=== PATIENT | female | born 1955 | race African-American/Black ===

== ENCOUNTER 2016-11-01 14:35 | Emergency (ER) | payer OTHER ==
[~2016-11-01] VITALS: Ht 160 cm; Wt 97.0 kg
[2016-11-01] MEDS ORDERED: KETOROLAC 60MG/2ML VIAL IM ONE (19:00)
[2016-11-01 19:07] VITALS: BP 123/72
[2016-11-01 19:19] LABS: BASOPHILS % 0.8 % (0.0-2.0); HEMATOCRIT. 39.8 % (36.0-48.0); HEMOGLOBIN. 13.2 g/dL (12.0-16.0); LYMPHOCYTES % 28.3 % (20.0-50.0); MEAN CORPUSCULAR HEMOGLOBIN 26.8 pg (28.0-32.0); MEAN CORPUSCULAR VOLUME 80.7 fL (81.0-99.0); MONOCYTES % 4.8 % (2.0-8.0); NEUTROPHILS % 65.1 % (40.0-76.0); PLATELET 231 x1000/uL (130-400); RED BLOOD CELL COUNT 4.93 mill/uL (4.2-5.4)
[2016-11-01 19:25] LABS: CHLORIDE 99 mEq/L (98-107)
[2016-11-01 19:27] LABS: PROTHROMBIN TIME 10.9 sec
[2016-11-01 19:37] LABS: CARBON DIOXIDE 28 mEq/L (21-32)
[2016-11-01 21:45] LABS: CLARITY URINE CLOUDY (CLEAR); COLOR URINE YELLOW (YELLOW); GLUCOSE URINE NEGATIVE (NEGATIVE); KETONES URINE NEGATIVE (NEGATIVE); LEUKOCYTE ESTERASE URINE NEGATIVE (NEGATIVE); NITRITE URINE NEGATIVE (NEGATIVE); OCCULT BLOOD URINE NEGATIVE (NEGATIVE); PH URINE 5.5 (4.5-8.0); PROTEIN URINE 1+ (NEGATIVE); SPECIFIC GRAVITY URINE 1.026 (1.005-1.030)
[2016-11-01] MEDS ORDERED: POTASSIUM CHLORIDE 20MEQ TABLET SR PO SCH (22:00)
== END 2016-11-01 22:51 | disposition home or self-care (01) ==
LOC: ER 19:05
DX: M54.5 Low back pain (principal); I10 Essential (primary) hypertension; F12.10 Cannabis abuse, uncomplicated; Z90.710 Acquired absence of both cervix and uterus; Z87.891 Personal history of nicotine dependence
CPT/HCPCS: 36415; 80053; 81001; 83690; 85025; 85610; 99284; J1885

== ENCOUNTER 2025-01-01 11:12 | Emergency (ER) | payer MEDICARE, OTHER ==
[~2025-01-01] VITALS: Ht 165.1 cm; Wt 91.0 kg
[2025-01-01 12:19] VITALS: O2SAT 95
[2025-01-01 12:38] LABS: BASOPHILS % 0.8 % (0.0-2.0); EOSINOPHILS % 0.9 % (0.0-5.0); HEMATOCRIT. 34.8 % (36.0-48.0); HEMOGLOBIN. 11.2 g/dL (12.0-16.0); LYMPHOCYTES % 12.8 % (20.0-50.0); MEAN PLATELET VOLUME 8.5 fl (7.4-10.4); MONOCYTES % 4.1 % (2.0-8.0); NEUTROPHILS % 81.4 % (40.0-76.0); PLATELET 416 x1000/uL (130-400); RED BLOOD CELL COUNT 4.23 mill/uL (4.2-5.4); RED CELL DISTRIBUTION WIDTH 15.3 % (11.6-14.6)
[2025-01-01 12:51] LABS: INR 1.0
[2025-01-01 12:54] LABS: ASPARTATE AMINOTRANSFERASE 12 IU/L (<34); BILIRUBIN DIRECT 0.1 mg/dL (<=3.0); BILIRUBIN TOTAL 0.5 mg/dL (0.1-1.0)
[2025-01-01 12:55] LABS: PROTEIN TOTAL 8.1 g/dL (6.0-8.3)
[2025-01-01] MEDS: KETOROLAC 30MG/ML VIAL IM ONE (12:55)
[2025-01-01 14:37] LABS: CREATININE 1.4 mg/dL (0.6-1.0); UREA NITROGEN BLOOD 27.0 mg/dL (9-23)
[2025-01-01] MEDS ORDERED: DICL100G58 TP (14:49)
[2025-01-01] MEDS ORDERED: CEPH500C2 MT (14:49)
[2025-01-01 15:07] VITALS: BP 115/74; PULSE 87; RESP 12; TEMP 36.7; O2SAT 100
[2025-01-13] MEDS ORDERED: LOSA50TA41 MT (10:46)
[2025-01-13] MEDS ORDERED: METF-1149 MT (10:46)
[2025-01-13] MEDS ORDERED: LOSA50TA41 PO ×2 (10:46)
[2025-01-13] MEDS ORDERED: ASPI-1497 PO (10:48)
[2025-01-13] MEDS ORDERED: DYR5 GT (11:21)
[2025-01-14] MEDS ORDERED: P20 PO (12:20)
[2025-01-14] MEDS ORDERED: INDO-14 PO (12:20)
== END 2025-01-01 15:23 | disposition home or self-care (01) ==
LOC: ER 11:12
DX: R60.0 Localized edema (principal); I10 Essential (primary) hypertension; F12.90 Cannabis use, unspecified, uncomplicated; Z90.710 Acquired absence of both cervix and uterus
CPT/HCPCS: 99284; 80076; 80048; 83880; 85025; 85610; 36415; 73630; 96372; J1885